=== PATIENT | male | born 1965 | race Caucasian/White ===

== ENCOUNTER 2018-07-31 17:01 | Emergency (ER) | payer OTHER ==
[2018-07-31 17:48] VITALS: BP 148/86; PULSE 100; TEMP 98.3
--- NOTE | 2018-07-31 18:28 | ED ---
Extremity Problem HPI - General Chief complaint: Extremity Problem,Nontraumatic Stated complaint: Hand swollen Time Seen by Provider: 07/31/18 18:03 Source: patient, RN notes reviewed Mode of arrival: ambulatory Limitations: no limitations - History of Present Illness Initial comments: This a 53-year-old male presents emergency Department chief complaint left hand pain. Patient states that he woke with hand swelling today and bruising. Patient does not remember injuring it though he states that he was working on putting hot water heater and that he may have hit it on something. Patient has full range of motion no paresthesias. Patient is right-hand dominant. Denies any weakness associated the left hand. His fevers or chills - Related Data Home Medications Medication Instructions Recorded Confirmed amLODIPine [Norvasc] 10 mg PO DAILY 11/20/15 07/31/18 Allergies Allergy/AdvReac Type Severity Reaction Status Date / Time lisinopril Allergy Swelling Verified 07/31/18 19:03 Review of Systems ROS Statement: Those systems with pertinent positive or pertinent negative responses have been documented in the HPI. ROS Other: All systems not noted in ROS Statement are negative. Past Medical History Past Medical History: COPD, Hypertension Additional Past Medical History / Comment(s): RIGHT FOOT FX, CURRENTLY IN "BOOT" USING A "KNEE CRUTCH" History of Any Multi-Drug Resistant Organisms: None Reported Past Surgical History: No Surgical Hx Reported Past Anesthesia/Blood Transfusion Reactions: No Reported Reaction Additional Past Anesthesia/Blood Transfusion Reaction / Comment(s): NO ANESTHESIA HX Past Psychological History: No Psychological Hx Reported Smoking Status: Current every day smoker Past Alcohol Use History: Occasional Past Drug Use History: None Reported - Past Family History Sister(s) Family Medical History: Cancer Additional Family Medical History / Comment(s): BREAST General Exam Limitations: no limitations General appearance: alert, in no apparent distress Head exam: Present: atraumatic, normocephalic, normal inspection Neck exam: Present: normal inspection. Absent: tenderness, meningismus, lymphadenopathy Respiratory exam: Present: normal lung sounds bilaterally. Absent: respiratory distress, wheezes, rales, rhonchi, stridor Cardiovascular Exam: Present: regular rate, normal rhythm, normal heart sounds. Absent: systolic murmur, diastolic murmur, rubs, gallop, clicks Extremities exam: Present: other (Left hand there is moderate swelling diffusely, ecchymosis noted there is some mild tenderness on the first and second metacarpal region, no snuffbox tenderness, neurovascular intact Refill less than 2 seconds no wrist tenderness) Skin exam: Present: warm, dry, intact, normal color. Absent: rash Course Vital Signs 07/31/18 17:45 Temperature 98.3 F Pulse Rate 100 Respiratory 16 Rate Blood Pressure 148/86 O2 Sat by Pulse 99 Oximetry Procedures - Orthopedic Splinting/Casting Injury #1 Side: left Upper Extremity Injury Location: short arm, hand Upper Extremity Immobilizer: thumb spica, synthetic pre-padded splint Additional Comments: Neurovascular intact before and after procedure Medical Decision Making - Medical Decision Making 53-year-old male presents emergency from for left hand injury. X-rays obtained does show evidence of foreign body though there is no opening or signs of infection. Patient does have a fracture at the base of the first carpal. Patient was splinted in a thumb spica and will follow-up with orthopedics tomorrow. Disposition Clinical Impression: Left hand fracture Disposition: HOME SELF-CARE Condition: Stable Instructions (If sedation given, give patient instructions): Hand Fracture (ED) Additional Instructions: Please return to the Emergency Department if symptoms worsen or any other concerns. Is patient prescribed a controlled substance at d/c from ED?: No Referrals: Dez Meyers MD [Primary Care Provider] - 1-2 days Edgar Keith DO [Medical Doctor] - 1-2 days Time of Disposition: 19:11
[2018-07-31 19:23] VITALS: RESP 18
--- NOTE | 2018-07-31 19:39 | XR ---
PROCEDURE: XR hand complete LT - 3V DATE AND TIME: 07/31/2018 6:26 PM CLINICAL INDICATION: PHH; Pain TECHNIQUE: Department protocol COMPARISON: 10/05/2014 FINDINGS: There is thenar eminence soft tissue swelling. A 3 x 5 mm metallic radiopaque foreign body is seen within the palmar soft tissues between the first and second metatarsal necks. There is nondisplaced mildly comminuted fracture of the base of the first metacarpal, which appears t o have an intra-articular component, involving the first LONGTERM articulation. No other fractures. IMPRESSION: 1. First metacarpal base fracture. 2. 3 x 5 mm metallic radiopaque foreign body.
== END 2018-07-31 19:23 | disposition home or self-care (01) ==
LOC: EC 17:01
DX: S62.235A Other nondisplaced fracture of base of first metacarpal bone, left hand, initial encounter for closed fracture (principal); M79.5 Residual foreign body in soft tissue; I10 Essential (primary) hypertension; F17.200 Nicotine dependence, unspecified, uncomplicated; Z79.899 Other long term (current) drug therapy; Z88.8 Allergy status to other drugs, medicaments and biological substances; X58.XXXA Exposure to other specified factors, initial encounter
CPT/HCPCS: 29125; 99283

== ENCOUNTER 2018-12-31 02:10 | Emergency (ER) | payer OTHER ==
--- NOTE | 2018-12-31 03:06 | CT ---
EXAMINATION TYPE: CT brain bharati wo con DATE OF EXAM: 12/31/2018 COMPARISON: None HISTORY: fall CT DLP: 1358.7 mGycm Automated exposure control for dose reduction was used. TECHNIQUE: CT scan of the head and cervical spine are performed without contrast. FINDINGS: There is high attenuation at the left frontal lobe convexity consistent with acute subara chnoid hemorrhage. There is also a rounded 1.5 cm area of high attenuation consistent with acute pare nchymal hemorrhage left frontal lobe. The area of hemorrhage overall measures 4.5 cm in length. There is no mass effect. There is no midline shift. Ventricles have normal size. The calvarium is intact. There is no sign of a skull fracture. The skull base is intact. There is some straightening of the cervical spine. There is disc space narrowing at C6-7 with spur fo rmation. Posterior elements are intact. There is hypertrophic facet arthropathy. Skull base is intact . There is no evidence of cervical spine fracture. IMPRESSION: Acute subarachnoid hemorrhage left frontal lobe with rounded area of acute parenchymal left frontal l obe hemorrhage. Spondylotic changes in the cervical spine. This exam was discussed with Dr. Cronin at 3:00 AM.
--- NOTE | 2018-12-31 03:23 | ED ---
Fall HPI - General Chief Complaint: Fall Stated Complaint: ETOH Time Seen by Provider: 12/31/18 02:19 Source: patient, EMS Mode of arrival: EMS - History of Present Illness Initial Comments: Patient's 53-year-old man brought by EMS to be evaluated after he had a fall tonight. Patient's does admit to drinking a number of alcoholic drinks. Patient states that he had tripped on the steps. Indicates he struck the right occipital area of his head. Patient denies symptoms and did initially request just to go home. Denies significant headache. No change in vision, hearing, or other sentences. Denies weakness or numbness of the extremities. No neck pain. 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 ROS Other: All systems not noted in ROS Statement are negative. Constitutional: Denies: fever Eyes: Denies: vision change ENT: Denies: ear pain, epistaxis Respiratory: Denies: cough, dyspnea Cardiovascular: Denies: chest pain, syncope Gastrointestinal: Denies: abdominal pain, vomiting, diarrhea Musculoskeletal: Denies: back pain Skin: Denies: rash Neurological: Denies: headache, weakness, numbness Past Medical History Past Medical History: COPD, Hypertension Additional Past Medical History / Comment(s): RIGHT FOOT FX History of Any Multi-Drug Resistant Organisms: None Reported Past Surgical History: Orthopedic Surgery Past Anesthesia/Blood Transfusion Reactions: No Reported Reaction Additional Past Anesthesia/Blood Transfusion Reaction / Comment(s): NO ANEST HESIA HX Past Psychological History: No Psychological Hx Reported Smoking Status: Current every day smoker Past Alcohol Use History: Daily Past Drug Use History: None Reported - Past Family History Sister(s) Family Medical History: Cancer Additional Family Medical History / Comment(s): BREAST General Exam Limitations: no limitations General appearance: alert, in no apparent distress Head exam: Present: normocephalic, other (Patient does have a moderate sized hematoma on the right of the occiput.) Eye exam: Present: normal appearance, PERRL, EOMI, nystagmus. Absent: scleral icterus, conjunctival injection ENT exam: Present: normal oropharynx, TM's normal bilaterally, normal external ear exam Neck exam: Present: normal inspection, full ROM, other (Patient in cervical collar). Absent: tenderness Respiratory exam: Present: normal lung sounds bilaterally. Absent: respiratory distress, wheezes, rales, rhonchi, stridor Cardiovascular Exam: Present: regular rate, normal rhythm, normal heart sounds. Absent: systolic murmur, diastolic murmur, rubs, gallop GI/Abdominal exam: Present: soft. Absent: distended, tenderness, guarding, rebound, rigid Extremities exam: Present: normal inspection, normal capillary refill. Absent: pedal edema, calf tenderness Back exam: Present: normal inspection. Absent: CVA tenderness (R), CVA tenderness (L), vertebral tenderness Neurological exam: Present: alert, oriented X3, CN II-XII intact. Absent: motor sensory deficit Skin exam: Present: warm, dry, intact, normal color. Absent: rash Course Vital Signs 12/31/18 02:12 Temperature 98.7 F Pulse Rate 74 Respiratory 18 Rate Blood Pressure 136/87 O2 Sat by Pulse 98 Oximetry Medical Decision Making - Medical Decision Making Patient's 53-year-old man brought by EMS to be evaluated after he had a fall tonight while drinking. Patient sent for CT scanning of brain and C-spine that does show left frontal subarachnoid hemorrhage also with component of intrap arenchymal blood. Discussed the finding with the patient to after reviewing the options to agree to transfer to [facility] to be evaluated by neurosurgery. Case is discussed with Dr Art, who will accept transfer. Critical Care Time Critical Care Time: Yes (30 minutes) Disposition Clinical Impression: Fall, Subarachnoid hemorrhage Disposition: OTHER INSTITUTION NOT DEFINED Condition: Serious Is patient prescribed a controlled substance at d/c from ED?: No Referrals: Dez Meyers MD [Primary Care Provider] - 1-2 days - Out of Hospital Transfer - Req. Specs Out of Hospital Transfer - Requested Specifics: Other Emergency Center
[2018-12-31 03:37] LABS: Basophils # (A) 0.1 k/uL (0-0.2); Basophils % (A) 2 %; Eosinophils # (A) 0.2 k/uL (0-0.7); Eosinophils % (A) 4 %; HCT 51.7 % (39.0-53.0); HGB 17.1 gm/dL (13.0-17.5); Lymphocytes # (A) 0.9 k/uL (1.0-4.8); Lymphocytes % (A) 16 %; MCH 32.7 pg (25.0-35.0); MCHC 33.1 g/dL (31.0-37.0); MCV 98.9 fL (80.0-100.0); Mean Platelet Volume 6.7; Monocytes # (A) 0.3 k/uL (0-1.0); Monocytes % (A) 5 %; Neutrophils # (A) 3.8 k/uL (1.3-7.7); Neutrophils % (A) 70 %; Platelet Count 159 k/uL (150-450); RBC 5.23 m/uL (4.30-5.90); RDW 12.8 % (11.5-15.5); WBC 5.4 k/uL (3.8-10.6)
[2018-12-31 03:49] LABS: INR 0.9 (<1.2); Partial Thromboplastin Time 24.9 sec (22.0-30.0); Prothrombin Time 10.1 sec (9.0-12.0)
[2018-12-31 03:50] LABS: ALT 34 U/L (21-72); AST 42 U/L (17-59); African American GFR (CKD) >90 (>60 ml/min/1.73 sqM); Albumin 4.8 g/dL (3.5-5.0); Alkaline Phosphatase 81 U/L (38-126); Anion Gap 12 mmol/L; Blood Urea Nitrogen 9 mg/dL (9-20); Calcium 9.1 mg/dL (8.4-10.2); Carbon Dioxide 24 mmol/L (22-30); Chloride 105 mmol/L (98-107); Glucose 114 mg/dL (74-99); Non-African American GFR(CKD) >90 (>60 ml/min/1.73 sqM); Potassium 4.4 mmol/L (3.5-5.1); Sodium 141 mmol/L (137-145); Total Bilirubin 0.3 mg/dL (0.2-1.3); Total Protein 8.6 g/dL (6.3-8.2)
[2018-12-31 04:00] LABS: Alcohol 255 mg/dL
[2018-12-31 04:30] VITALS: PULSE 82
[2018-12-31 04:35] VITALS: BP 140/81; RESP 17; TEMP 98.1
== END 2018-12-31 04:37 | disposition other institution (70) ==
LOC: EC 02:10
DX: S06.6X0A Traumatic subarachnoid hemorrhage without loss of consciousness, initial encounter (principal); I10 Essential (primary) hypertension; F17.200 Nicotine dependence, unspecified, uncomplicated; Z79.899 Other long term (current) drug therapy; Z88.8 Allergy status to other drugs, medicaments and biological substances; W01.198A Fall on same level from slipping, tripping and stumbling with subsequent striking against other object, initial encounter; Y93.89 Activity, other specified; Y92.009 Unspecified place in unspecified non-institutional (private) residence as the place of occurrence of the external cause
CPT/HCPCS: 36415; 70450; 72125; 80053; 80320; 85025; 85610; 85730; 99291

== ENCOUNTER 2019-01-16 18:56 | Emergency (ER) | payer OTHER ==
[2019-01-16 19:03] VITALS: BP 130/79; PULSE 108; RESP 18; TEMP 98.2
--- NOTE | 2019-01-16 19:55 | ED ---
General Adult HPI - General Source: patient Mode of arrival: wheelchair Limitations: no limitations <Tia Ivey - Last Filed: 01/16/19 19:44> <Mykel Oneill - Last Filed: 01/16/19 20:45> - General Chief complaint: Recheck/Abnormal Lab/Rx Stated complaint: abnormal CT results Time Seen by Provider: 01/16/19 19:27 - History of Present Illness Initial comments: 54-year-old male patient presents to the emergency department today for evaluation after having an abnormal outpatient computed tomography scan of his brain. Patient had a fall on December 31 while drinking alcohol. Patient did come to this emergency department had CT of his brain that showed a subarachnoid hemorrhage. He was transferred [facility]. Today his primary care physician was doing a follow-up computed tomography scan, results showed increasing size of the hemorrhage, increased edema, and a new 4 mm midline shift. Patient denies any new symptoms or concerns. He denies blurred vision, double vision, dizziness, weakness, headache, nausea, or vomiting. Family member reports increasing mood swings but denies any confusion or repetitive questioning. Patient denies any new injury or falls. Patient denies any recent rash, fever, chills, shortness breath, chest pain, abdominal pain, diarrhea, constipation, back pain, hematuria, dysuria, urinary urgency, urinary frequency, or any other complaints. (Tia Ivye) - Related Data Home Medications Medication Instructions Recorded Confirmed amLODIPine [Norvasc] 10 mg PO DAILY 11/20/15 07/31/18 Allergies Allergy/AdvReac Type Severity Reaction Status Date / Time lisinopril Allergy Swelling Verified 01/16/19 19:03 Review of Systems ROS Other: All systems not noted in ROS Statement are negative. <Tia Ivey - Last Filed: 01/16/19 19:44> ROS Other: All systems not noted in ROS Statement are negative. <Mykel Oneill - Last Filed: 01/16/19 20:45> ROS Statement: Those systems with pertinent positive or pertinent negative responses have been documented in the HPI. Past Medical History Past Medical History: COPD, Hypertension Additional Past Medical History / Comment(s): RIGHT FOOT FX History of Any Multi-Drug Resistant Organisms: None Reported Past Surgical History: Orthopedic Surgery Past Anesthesia/Blood Transfusion Reactions: No Reported Reaction Additional Past Anesthesia/Blood Transfusion Reaction / Comment(s): NO ANESTHESIA HX Past Psychological History: No Psychological Hx Reported Smoking Status: Current every day smoker Past Alcohol Use History: Occasional Past Drug Use History: None Reported - Past Family History Sister(s) Family Medical History: Cancer Additional Family Medical History / Comment(s): BREAST <Tia Ivey - Last Filed: 01/16/19 19:44> General Exam Limitations: no limitations General appearance: alert, in no apparent distress, other (This is a well- developed, well-nourished adult male patient in no acute distress. Vital signs upon presentation are temperature 98.2F, pulse 108, respirations 18, blood pressure 130/79, pulse ox 97% on room air.) Eye exam: Present: normal appearance, PERRL, EOMI. Absent: scleral icterus, conjunctival injection, nystagmus, periorbital swelling ENT exam: Present: normal exam, normal oropharynx, mucous membranes moist, TM's normal bilaterally (No hemotympanum) Neck exam: Present: normal inspection, full ROM. Absent: tenderness, men ingismus, lymphadenopathy Respiratory exam: Present: normal lung sounds bilaterally. Absent: respiratory distress, wheezes, rales, rhonchi, stridor Cardiovascular Exam: Present: regular rate, normal rhythm, normal heart sounds. Absent: systolic murmur, diastolic murmur, rubs, gallop, clicks GI/Abdominal exam: Present: soft, normal bowel sounds. Absent: distended, tenderness, guarding, rebound, rigid Neurological exam: Present: alert, oriented X3, CN II-XII intact Expanded Speech: Present: fluid speech Cranial nerves: EOM's Intact: Normal, Nystagmus: Normal Motor strength exam: RUE: 5, LUE: 5, RLE: 5, LLE: 5 Eye Response: (4) open spontaneously Motor Response: (6) obeys commands Verbal Response: (5) oriented [place] Total: 15 Psychiatric exam: Present: normal affect, normal mood Skin exam: Present: warm, dry, intact, normal color. Absent: rash <Tia vIey - Last Filed: 01/16/19 19:44> Course <Mykel Oneill - Last Filed: 01/16/19 20:45> Vital Signs 01/16/19 18:58 Temperature 98.2 F Pulse Rate 108 H Respiratory 18 Rate Blood Pressure 130/79 O2 Sat by Pulse 97 Oximetry - Reevaluation(s) Reevaluation #1: 01/16/19 20:44 PA supervision: I proceeded [id number] evaluation the patient and did discuss the findings with the patient and his Trudy. Patient does have evidence of increased intracranial bleed with some mass effect. He has no symptoms to report to. He is awake alert oriented 3 he does demonstrate normal decision making capacity. He does not want to be transferred by EMS and is refusing. He will also go by private vehicle. Patient was cautioned to go immediately to [facility] and Also Not to Drive. His Family Member Will Take Him Immediately. (Mykel Oneill) Medical Decision Making - Radiology Data Radiology results: report reviewed <Tia Ivey - Last Filed: 01/16/19 19:44> - Medical Decision Making 54-year-old male patient presents to the emergency department today for evaluation after having an abnormal outpatient computed tomography scan. Patient was in on 12/31/2018 after sustaining a head injury, was found to have a subarachnoid and intraparenchymal hemorrhage and was transferred to [facility]. Computed tomography scan today showed worsening of a left frontal intraparenchymal hemorrhage with new extensive left frontal lobe edema and a new [id number] midline shift of 4 mm. There is also a crescentic extra-axial fluid collection measuring 2 mm in thickness which represents layering of the previously seen subarachnoid hemorrhage versus small subdural hemorrhage. Did discuss these findings and significance with the patient. It is recommended that he be transferred back to [facility] for evaluation by neurosurgery. Patient agrees to the transfer but he refuses to be transferred by ambulance. I did discuss the dangers of traveling by private vehicle with his CT findings, he verbalizes understanding and would still like to decline ambulance transfer. My attending Dr. Oneill was in to see the patient, did an evaluation, and also stressed the dangers of traveling by private vehicle with his CT findings. Patient again declined and ambulance transfer. I did discuss the case with Dr. Beyer at [facility] Emergency Department, he accepts the transfer but also recommends patient be transferred by ambulance. I did discuss this with the patient one more time, discussed at length the risks of , stroke, permanent disability, and worsening of his condition. He verbalizes understanding, family member present verbalizes understanding, he again refuses ambulance transfer and would like to go by private vehicle. Patient is instructed to proceed directly to the [facility] or the nearest emergency department should he develop any concerning symptoms. (Tia Ivey) - Radiology Data CT brain without contrast was obtained. Report was reviewed in its entirety. Impression by Dr. Garces shows increasing size of the left frontal intraparenchymal hemorrhage with new extensive left frontal lobe edema and left to right midline shift to 4 mm. Crescentic extra-axial hyperdense fluid collection along the left frontal lobe measuring only 2 mm in thickness which represents layering of the previously seen subarachnoid hemorrhage versus small subdural hemorrhage. (Tia Ivey) Disposition Time of Disposition: 19:57 - Out of Hospital Transfer - Req. Specs Out of Hospital Transfer - Requested Specifics: Other Emergency Center ([facility] - [place], [place]) <Tia Ivey - Last Filed: 01/16/19 19:44> <Mykel Oneill - Last Filed: 01/16/19 20:45> Clinical Impression: Intraparenchymal hemorrhage of brain, Cerebral edema, Midline shift of brain Disposition: OTHER INSTITUTION NOT DEFINED Condition: Serious Instructions (If sedation given, give patient instructions): Subarachnoid Hemorrhage (DC) Additional Instructions: Go directly to [facility] emergency department. Do not make any stops. If you develop any new or worsening symptoms proceed directly to the nearest emergency department. Referrals: Dez Meyers MD [Primary Care Provider] - 1-2 days
== END 2019-01-16 20:30 | disposition other institution (70) ==
LOC: EC 18:56
DX: I61.9 Nontraumatic intracerebral hemorrhage, unspecified (principal); G93.6 Cerebral edema; R90.89 Other abnormal findings on diagnostic imaging of central nervous system; I10 Essential (primary) hypertension; F17.200 Nicotine dependence, unspecified, uncomplicated
CPT/HCPCS: 99283

== ENCOUNTER → 2019-01-16 | Outpatient (CLI) | payer OTHER ==
--- NOTE | 2019-01-16 16:05 | CT ---
EXAMINATION TYPE: CT brain wo con DATE OF EXAM: 01/16/2019 COMPARISON: CT brain and cervical spine dated 12/31/2018 HISTORY: Follow up for subarachnoid hemorrhage. CT DLP: 1061.1 mGycm. Automated Exposure Control for Dose Reduction was Utilized. TECHNIQUE: CT scan of the head is performed without contrast. FINDINGS: There has been interval enlargement of the left intraparenchymal hemorrhage with predominan tly subacute blood products however hyperdense foci are seen centrally and acute component is possibl e. This measures up to 2.7 x 2.6 cm and there is new midline shift that is left to right of 4 mm. The re is surrounding vasogenic edema on the left frontal lobe and sulcal effacement. There is crescentic hyperintensity along the inferior left frontal lobe on image 26 measuring only 2 mm in thickness, li marie represents a layering previously seen subarachnoid hemorrhage versus small subdural hemorrhage. Left frontal edema extends towards the skull vertex. Sulcal prominence on the right relates to age-related atrophy. Posterior fossa cystic change does not communicate with the foramen magnum and is left paracentral favoring an arachnoid cyst, benign findi ng. No intraventricular hemorrhage is seen. A few patchy areas of hypoattenuation in the periventricu lar white matter are most commonly on the basis of chronic microangiopathy. Orbits are symmetric and unremarkable. Paranasal sinuses and mastoid air cells are well aerated. Calvarium is intact. IMPRESSION: 1. Increasing size of the left frontal intraparenchymal hemorrhage with new extensive left frontal lo be edema and [id number] midline shift of 4 mm. Findings were communicated with the ordering provid er Dr. Meyers by Dr. Garces at 1602 p.m. on 01/16/2019. 2. Crescentic extra-axial hyperdense fluid collection along the left frontal lobe measuring only 2 mm in thickness with represents layering of the previously seen subarachnoid hemorrhage versus small workman bdural hemorrhage.
== END | disposition home or self-care (01) ==
LOC: RADCTMAIN 15:32
PROVIDERS: ATTEND Pediatrics
DX: I61.1 Nontraumatic intracerebral hemorrhage in hemisphere, cortical (principal); G93.89 Other specified disorders of brain; R60.0 Localized edema
CPT/HCPCS: 70450

== ENCOUNTER 2024-08-18 07:30 | Emergency (ER) | payer OTHER ==
--- NOTE | 2024-08-18 07:50 | ED ---
General Adult HPI - General Chief complaint: Fall Stated complaint: Fall, right side pain Time Seen by Provider: 08/18/24 07:35 Source: patient, RN notes reviewed, old records reviewed Mode of arrival: ambulatory Limitations: no limitations - History of Present Illness Initial comments: This is a 59-year-old male who presents to the emergency department stating that yesterday he was out hiking and he fell on a trail and hit something on the right side of his ribs and since then the ribs are hurting him. Patient has no shortness of breath but he is having a hard time taking a deep breath because it hurts. Patient denies any abdominal pain. Patient has back pain. Patient denies hitting his head or neck. - Related Data Home Medications Medication Instructions Recorded Confirmed amLODIPine [Norvasc] 10 mg PO DAILY 11/20/15 07/31/18 Previous Rx's Medication Instructions Recorded Ketorolac [Toradol] 10 mg PO Q8HR #15 tab 08/18/24 Allergies Allergy/AdvReac Type Severity Reaction Status Date / Time lisinopril Allergy Swelling Verified 08/18/24 07:34 Review of Systems ROS Statement: Those systems with pertinent positive or pertinent negative responses have been documented in the HPI. ROS Other: All systems not noted in ROS Statement are negative. Past Medical History Past Medical History: COPD, Hypertension Additional Past Medical History / Comment(s): RIGHT FOOT FX History of Any Multi-Drug Resistant Organisms: None Reported Past Surgical History: Orthopedic Surgery Past Anesthesia/Blood Transfusion Reactions: No Reported Reaction Additional Past Anesthesia/Blood Transfusion Reaction / Comment(s): NO ANESTHESIA HX Past Psychological History: No Psychological Hx Reported Past Alcohol Use History: Occasional Past Drug Use History: None Reported - Past Family History Sister(s) Family Medical History: Cancer Additional Family Medical History / Comment(s): BREAST General Exam - General Exam Comments Initial Comments: GENERAL: Patient is well-developed and well-nourished. Patient is nontoxic and well- hydrated and is in mild distress. ENT: Neck is soft and supple. No significant lymphadenopathy is noted. Oropharynx is clear. Moist mucous membranes. Neck has full range of motion without eliciting any pain. EYES: The sclera were anicteric and conjunctiva were pink and moist. Extraocular movements were intact and pupils were equal round and reactive to light. Eyelids were unremarkable. PULMONARY: Unlabored respirations. Good breath sounds bilaterally. No audible rales rhonchi or wheezing was noted. CARDIOVASCULAR: There is a regular rate and rhythm without any murmurs gallops or rubs. Patient has tenderness in the little right lateral ribs. Tenderness is at about rib 8 through 11. ABDOMEN: Soft and nontender with normal bowel sounds. No palpable organomegaly was noted. There is no palpable pulsatile mass. SKIN: Skin is clear with no lesions or rashes and otherwise unremarkable. NEUROLOGIC: Patient is alert and oriented x3. Cranial nerves II through XII are grossly intact. Motor and sensory are also intact. Normal speech, volume and content. Symmetrical smile. MUSCULOSKELETAL: Normal extremities with adequate strength and full range of motion. No lower extremity swelling or edema. No calf tenderness. LYMPHATICS: No significant lymphadenopathy is noted PSYCHIATRIC: Normal psychiatric evaluation. Limitations: no limitations Course Vital Signs 08/18/24 07:31 Temperature 97.6 F Pulse Rate 90 Respiratory 16 Rate Blood Pressure 164/99 O2 Sat by Pulse 97 Oximetry Medical Decision Making - Medical Decision Making Was pt. sent in by a medical professional or institution (, PA, [employer], urgent care, hospital, or [facility]...) When possible be specific @ -No Did you speak to anyone other than the patient for history (EMS, parent, family, police, friend...)? What history was obtained from this source @ -No Did you review nursing and triage notes (agree or disagree)? Why? @ -I reviewed and agree with nursing and triage notes Were old charts reviewed (outside hosp., previous admission, EMS record, old EKG, old radiological studies, urgent care reports/EKG's, [facility] records)? Report findings @ -No old charts were reviewed Differential Diagnosis? @ -Differential Musculoskeletal Muscular strain, contusion, ligament sprain, fracture, arthritis, septic arthritis, bursitis, cellulitis, muscle spasm, nerve compression, DVT, arterial occlusion, herpes zoster, electrolyte abnormality, tumor.... This is not meant to be in all inclusive list EKG interpreted by me (3pts min.). @ -As above X-rays interpreted by me (1pt min.). @ -X-ray of the chest and ribs showed no acute abnormality CT interpreted by me (1pt min.). @ -None done U/S interpreted by me (1pt. min.). @ -None done What testing was considered but not performed or refused? (CT, X-rays, U/S, labs)? Why? @ -None What meds were considered but not given or refused? Why? @ -None Did you discuss the management of the patient with other professionals (professionals i.e. , PA, [employer], lab, RT, psych nurse, social worker psychiatric, instrument/control technician, teacher, [employer] revenue officer, counseling case manager)? Give summary @ -No Was smoking cessation discussed for >3mins.? @ -No Was critical care preformed (if so, how long)? @ -No Were there social determinants of health that impacted care today? How? (Homelessness, low income, unemployed, alcoholism, drug addiction, transportation, low edu. Level, literacy, decrease access to med. care, long term, rehab)? @ -No Was there de-escalation of care discussed even if they declined (Discuss DNR or withdrawal of care, Hospice)? DNR status @ -No What co-morbidities impacted this encounter? (DM, HTN, Smoking, COPD, CAD, Cancer, CVA, ARF, Chemo, Hep., AIDS, mental health diagnosis, sleep apnea, morbid obesity)? @ -None Was patient admitted / discharged? Hospital course, mention meds given and route, prescriptions, significant lab abnormalities, going to OR and other pertinent info. @ -Patient received Toradol and Dilaudid in the emergency department for pain. Chest x-ray showed no obvious fracture however clinically he appears to have a rib fracture secondary to his tenderness Undiagnosed new problem with uncertain prognosis? @ -No Drug Therapy requiring intensive monitoring for toxicity (Heparin, Nitro, Insulin, Cardizem)? @ -No Were any procedures done? @ -No Diagnosis/symptom? @ -Clinical rib fracture Acute, or Chronic, or Acute on Chronic? @ -Acute Uncomplicated (without systemic symptoms) or Complicated (systemic symptoms)? @ -Complicated Side effects of treatment? @ -No Exacerbation, Progression, or Severe Exacerbation? @ -No Poses a threat to life or bodily function? How? (Chest pain, [place], NH, pneumonia, PE, COPD, DKA, ARF, appy, cholecystitis, CVA, Diverticulitis, Homicidal, Suicidal, threat to staff... and all critical care pts) @ -No Disposition Clinical Impression: Fall, Rib fracture Disposition: HOME SELF-CARE Condition: Good Instructions (If sedation given, give patient instructions): Fall Prevention (ED), Rib Fracture (ED) Prescriptions: Ketorolac [Toradol] 10 mg PO Q8HR #15 tab Is patient prescribed a controlled substance at d/c from ED?: No Referrals: None,Stated [Primary Care Provider] - 1-2 days Time of Disposition: 08:41
[2024-08-18] MEDS: HYDROmorphone 0.5 MG/0.5 ML SYRINGE IM STA (07:59)
[2024-08-18] MEDS: KETOROLAC 15 MG/ML 1 ML VIAL IM STA (07:59)
[2024-08-18] MEDS ORDERED: DILTIAZEM 125 MG in DEXTROSE 5% IN WATER 100 ML IV SCH (08:00)
[2024-08-18] MEDS: DILTIAZEM 5 MG/ML 5 ML VIAL IVP STA (08:04)
--- NOTE | 2024-08-18 08:32 | XR ---
Chest and right RIBS HISTORY: Chest pain following fall. COMPARISON: None TECHNIQUE: 5 views of the chest and right ribs are obtained. FINDINGS: The ribs are intact and there is no fracture or focal intraosseous abnormality. Right lung is clear and there is no lung consolidation or abnormal interstitial opacity. There is no pleural effusion, pleural thickening or pneumothorax. The heart and pulmonary vasculature are normal. IMPRESSION: 1. No acute cardiopulmonary disease. 2. No evidence of right rib fracture. [facility], , 08/18/2024 8:30 AM
[2024-08-18] MEDS ORDERED: HYDROmorphone 0.5 MG/0.5 ML SYRINGE IM STA (08:40)
[2024-08-18] MEDS ORDERED: traMADol 50 MG STARTER PACK 3 TAB BTL PO STA (08:42)
[2024-08-18] MEDS ORDERED: ACET/COD 300 MG/30 MG STARTER PACK 6 TAB BTL PO STA (08:42)
[2024-08-18 08:56] VITALS: BP 158/89; PULSE 78; RESP 18; TEMP 98.1
== END 2024-08-18 08:56 | disposition home or self-care (01) ==
LOC: EC 07:30
DX: S22.31XA Fracture of one rib, right side, initial encounter for closed fracture (principal); Z88.8 Allergy status to other drugs, medicaments and biological substances; W01.10XA Fall on same level from slipping, tripping and stumbling with subsequent striking against unspecified object, initial encounter; Y93.01 Activity, walking, marching and hiking
CPT/HCPCS: 99283; 96372; 71101; J1885; J1171